=== PATIENT | female | born 1995 | race African-American/Black ===

== ENCOUNTER 2023-12-16 21:16 | Inpatient (IN) | payer BC ==
[2023-12-16 23:14] VITALS: BMI 45.5
[2023-12-16] MEDS: Lactated Ringer's 1,000 ML IV SCH (23:35)
[2023-12-16] MEDS ORDERED: hydrALAZINE 20 MG/ML VIAL SLOW IVP PRN (23:41)
[2023-12-16] MEDS ORDERED: Promethazine HCl 25 MG/ML VIAL IM PRN (23:41)
[2023-12-16] MEDS ORDERED: Acetaminophen 500 MG TAB PO PRN (23:41)
[2023-12-16] MEDS ORDERED: Ondansetron PF 4 MG/2 ML Vial IVP PRN (23:41)
[2023-12-17] MEDS: Ondansetron PF 4 MG/2 ML Vial IVP SCH (00:22)
[2023-12-17 00:23] LABS: #Basophils 0.04 10x3/uL (0.0-0.2); #Eosinphils 0.23 10x3/uL (0.0-0.5); #Neutrophils 9.07 10x3/uL (1.5-8.4); %Basophils 0.3 % (0.0-2.0); %Eosinophils 1.9 % (0.0-6.0); %Lymphocytes 18.7 % (18.0-47.0); %Monocytes 5.6 % (0.0-10.0); %Neutrophils 73.3 % (40.0-75.0); Hematocrit 31.9 % (34.9-44.5); Hemoglobin 10.7 g/dL (12.0-15.5); Mean Corpuscular HGB CONC 33.5 g/dL (32.0-36.0); Mean Corpuscular Hemoglobin 24.8 pg (27.0-33.0); Mean Platelet Volume 9.9 fl (7.4-10.4); Platelet Count 354 10x3/uL (150-450); RBC Distribution Width 15.2 % (11.5-14.5); Red Blood Cell (RBC) Count 4.31 10x6/uL (3.90-5.03); White Blood Cell (WBC) Count 12.4 10x3/uL (3.5-10.5)
[2023-12-17 00:28] LABS: ALT (SGPT) 72 U/L (8-55); AST (SGOT) 46 U/L (5-34); Albumin 2.9 g/dL (3.5-5.0); Alkaline Phosphatase 65 U/L (40-110); Anion Gap 13 mmol/L (10-20); BUN (Urea Nitrogen) Less than 4 mg/dL (7.0-18.7); Bilirubin, Total 1.2 mg/dL (0.2-1.2); Calc. Creatinine Clearance 234 mL/min (70-130); Calcium 8.5 mg/dL (7.8-10.44); Carbon Dioxide 19 mmol/L (22-29); Chloride 109 mmol/L (98-107); Estimated GFR 115; Globulin 3.5 g/dL (2.4-3.5); Glucose 94 mg/dL (70-105); Potassium 3.8 mmol/L (3.5-5.1); Protein, Total 6.4 g/dL (6.0-8.3); Sodium 137 mmol/L (136-145)
[2023-12-17] MEDS: Metoclopramide HCl 10 MG (2 mL) VIAL IVP SCH ×2 (00:43→06:00)
[2023-12-17 04:13] LABS: Bilirubin Neg (Negative); Blood, Urine Negative (Negative); Clarity Clear (Clear); Glucose, Urine (Dipstick) Normal (Negative); Ketone, Urine 150 mg/dL (Negative); Leukocyte Negative (Negative); Nitrite Negative (Negative); Protein, Urine (Dipstick) 15 mg/dl (Neg-Trace); Specific Gravity, Urine 1.015 (1.005-1.030)
[2023-12-17 04:20] LABS: Bacteria/HPF None Seen HPF (None Seen); RBC/HPF 0-3 HPF (0-3); Squamous Epithelial 0-3 HPF (0-3); WBC/HPF None Seen HPF (0-3)
[2023-12-17] MEDS ORDERED: Calcium Carbonate 500 MG ChewTAB PO PRN (06:24)
[2023-12-17] MEDS: Pantoprazole DR 40 MG TAB PO SCH (06:38)
[2023-12-17 08:51] LABS: Amphetamine Not Detected (NotDetected); Barbiturates Screen Not Detected (NotDetected); Benzodiazepine Screen Not Detected (NotDetected); Cocaine Metabolite Screen Not Detected (NotDetected); Methadone Not Detected (NotDetected); Methamphetamine Not Detected (NotDetected); Opiate Screen Not Detected (NotDetected); Oxycodone Screen Not Detected (NotDetected); Phencyclidine (PCP) Not Detected (NotDetected); THC/Cannabinoid Screen Not Detected (NotDetected); Tricyclic Screen Not Detected (NotDetected)
[2023-12-17] MEDS ORDERED: Polyethylene Glycol 3350 17 GM Packet PO PRN (16:49)
[2023-12-17] MEDS: Docusate 100 MG CAP PO PRN (17:55)
[2023-12-17] MEDS: Senokot S 8.6-50 MG TAB PO SCH (20:32)
[2023-12-18] MEDS: Promethazine HCl 25 MG in Sodium Chloride 0.9% 50 ML IVPB PRN (03:22)
[2023-12-18] MEDS ORDERED: Ondansetron ORAL SOLN. 4 MG/5 ML UDCUP PO PRN (07:40)
[2023-12-18] MEDS ORDERED: Metoclopramide HCl 10 MG TAB PO PRN (07:45)
[2023-12-18] MEDS ORDERED: Promethazine HCl 6.25 MG/5 ML Syrup PO PRN (07:47)
[2023-12-18] MEDS: Pantoprazole DR 40 MG TAB PO SCH (10:50)
[2023-12-18] MEDS: Ondansetron PF 4 MG/2 ML Vial IVP SCH (11:49)
[2023-12-18] MEDS: Metoclopramide HCl 10 MG (2 mL) VIAL IVP SCH (14:13)
[2023-12-19 09:28] LABS: #Basophils 0.03 10x3/uL (0.0-0.2); #Eosinphils 0.31 10x3/uL (0.0-0.5); #Monocytes 0.69 10x3/uL (0.0-1.1); #Neutrophils 7.56 10x3/uL (1.5-8.4); %Basophils 0.3 % (0.0-2.0); %Eosinophils 2.9 % (0.0-6.0); %Lymphocytes 19.2 % (18.0-47.0); %Monocytes 6.5 % (0.0-10.0); %Neutrophils 70.7 % (40.0-75.0); Hematocrit 30.2 % (34.9-44.5); Hemoglobin 10.4 g/dL (12.0-15.5); Mean Corpuscular HGB CONC 34.4 g/dL (32.0-36.0); Mean Corpuscular Hemoglobin 24.9 pg (27.0-33.0); Mean Corpuscular Volume 72.4 fl (81.6-98.3); Platelet Count 314 10x3/uL (150-450); RBC Distribution Width 15.4 % (11.5-14.5); Red Blood Cell (RBC) Count 4.17 10x6/uL (3.90-5.03); White Blood Cell (WBC) Count 10.7 10x3/uL (3.5-10.5)
[2023-12-19 09:32] LABS: ALT (SGPT) 84 U/L (8-55); AST (SGOT) 45 U/L (5-34); Albumin 2.7 g/dL (3.5-5.0); Alkaline Phosphatase 69 U/L (40-110); Anion Gap 15 mmol/L (10-20); BUN (Urea Nitrogen) Less than 4 mg/dL (7.0-18.7); Bilirubin, Total 1.1 mg/dL (0.2-1.2); Calc. Creatinine Clearance 255 mL/min (70-130); Calcium 8.6 mg/dL (7.8-10.44); Carbon Dioxide 17 mmol/L (22-29); Chloride 107 mmol/L (98-107); Estimated GFR 121; Globulin 3.6 g/dL (2.4-3.5); Glucose 92 mg/dL (70-105); Protein, Total 6.3 g/dL (6.0-8.3); Sodium 136 mmol/L (136-145)
[2023-12-19] MEDS: Multivitamins, Adult 10 ML, Folic Acid 1 MG, Thiamine HCl 100 MG, Admixture Fee 1 EACH ... IV SCH (12:36)
[2023-12-19] MEDS: Potassium Chloride 10 MEQ in Premix 1 BAG IVPB SCH (12:36)
[2023-12-19 17:19] LABS: Anisocytosis SLIGHT = 6-15 cells (100X) (0-5/hpf); Hypochromia SLIGHT = 6-15 cells (100X) (0-5/hpf); Microcytosis MODERATE=15-30 cells (100X) (0-5/hpf); Poikilocytosis SLIGHT = 6-15 cells (100X) (0-5/hpf)
[2023-12-19 17:21] LABS: Elliptocytes SLIGHT = 2-5 cells (100X) (0-1/hpf); Ovalocytes SLIGHT = 2-5 cells (100X) (0-1/hpf); Platelet Adequacy Comment Appears Adequate
[2023-12-19] MEDS: diphenhydrAMINE 50 MG/ML VIAL IVP SCH (17:46)
[2023-12-20 04:34] LABS: Free T4 (Free Thyroxine) 1.09 ng/dL (0.70-1.48); Thyroid Stimulating Hormone 2.6664 uIU/mL (0.35-4.94)
[2023-12-20 07:18] LABS: #Basophils 0.03 10x3/uL (0.0-0.2); #Eosinphils 0.37 10x3/uL (0.0-0.5); #Monocytes 0.59 10x3/uL (0.0-1.1); #Neutrophils 5.81 10x3/uL (1.5-8.4); %Basophils 0.3 % (0.0-2.0); %Eosinophils 4.1 % (0.0-6.0); %Monocytes 6.5 % (0.0-10.0); %Neutrophils 63.8 % (40.0-75.0); Hematocrit 31.5 % (34.9-44.5); Mean Corpuscular HGB CONC 34.9 g/dL (32.0-36.0); Mean Corpuscular Hemoglobin 25.3 pg (27.0-33.0); Mean Corpuscular Volume 72.6 fl (81.6-98.3); Platelet Count 342 10x3/uL (150-450); RBC Distribution Width 15.6 % (11.5-14.5); Red Blood Cell (RBC) Count 4.34 10x6/uL (3.90-5.03); White Blood Cell (WBC) Count 9.1 10x3/uL (3.5-10.5)
[2023-12-20 07:30] LABS: ALT (SGPT) 104 U/L (8-55); AST (SGOT) 59 U/L (5-34); Albumin 2.7 g/dL (3.5-5.0); Alkaline Phosphatase 76 U/L (40-110); Anion Gap 13 mmol/L (10-20); BUN (Urea Nitrogen) Less than 4 mg/dL (7.0-18.7); Bilirubin, Total 0.7 mg/dL (0.2-1.2); Calc. Creatinine Clearance 255 mL/min (70-130); Calcium 8.5 mg/dL (7.8-10.44); Carbon Dioxide 18 mmol/L (22-29); Chloride 108 mmol/L (98-107); Estimated GFR 121; Globulin 3.6 g/dL (2.4-3.5); Glucose 144 mg/dL (70-105); Potassium 3.2 mmol/L (3.5-5.1); Protein, Total 6.3 g/dL (6.0-8.3); Sodium 136 mmol/L (136-145)
[2023-12-20 07:50] LABS: Microcytosis SLIGHT = 6-15 cells (100X) (0-5/hpf); Platelet Adequacy Comment Appears Adequate
[2023-12-20 08:27] LABS: HBsAg Index 0.31 S/CO (0-0.99); Hep B Surf Ag Non-Reactive S/CO (NonReactive)
[2023-12-20] MEDS ORDERED: Famotidine/PF 20 mg/2ml Vial SLOW IVP SCH (09:00)
[2023-12-20] MEDS: Pantoprazole DR 40 MG TAB PO SCH (09:56)
[2023-12-20] MEDS: Metoclopramide HCl 10 MG (2 mL) VIAL IVP SCH (14:20)
[2023-12-20 15:08] LABS: Hep A IgM AB NONREACTIVE (NonReactive); Hep A IgM S/CO 0.17 S/CO (0-0.79); Hep C IgG Ab NONREACTIVE S/CO (NonReactive); Hep C Index 0.11 S/CO (0-0.79)
[2023-12-20 15:57] LABS: Hepatitis B Core IgM Abs NONREACTIVE S/CO (NonReactive)
[2023-12-21 04:18] LABS: ALT (SGPT) 93 U/L (8-55); AST (SGOT) 36 U/L (5-34); Albumin 2.7 g/dL (3.5-5.0); Alkaline Phosphatase 72 U/L (40-110); Anion Gap 11 mmol/L (10-20); BUN (Urea Nitrogen) Less than 4 mg/dL (7.0-18.7); Bilirubin, Total 0.5 mg/dL (0.2-1.2); Calc. Creatinine Clearance 259 mL/min (70-130); Calcium 8.4 mg/dL (7.8-10.44); Carbon Dioxide 22 mmol/L (22-29); Chloride 106 mmol/L (98-107); Estimated GFR 121; Globulin 3.5 g/dL (2.4-3.5); Glucose 88 mg/dL (70-105); Potassium 3.1 mmol/L (3.5-5.1); Protein, Total 6.2 g/dL (6.0-8.3); Sodium 136 mmol/L (136-145)
[2023-12-21] MEDS ORDERED: Ondansetron PF 4 MG/2 ML Vial IVP PRN (07:31)
[2023-12-21] MEDS: Pantoprazole 40 MG VIAL IVP SCH (08:27)
[2023-12-21] MEDS: diphenhydrAMINE 25 MG CAP PO SCH (08:27)
[2023-12-21] MEDS: Potassium Chloride 20 MEQ in Premix 1 BAG IVPB SCH (08:46)
[2023-12-21] MEDS: Ondansetron ODT 4 MG TAB SL SCH (11:36)
[2023-12-21] MEDS: Metoclopramide HCl 10 MG TAB PO SCH (11:36)
[2023-12-21 20:52] VITALS: TEMP 98.2
[2023-12-22 04:46] LABS: ALT (SGPT) 66 U/L (8-55); AST (SGOT) 26 U/L (5-34); Albumin 2.5 g/dL (3.5-5.0); Alkaline Phosphatase 68 U/L (40-110); Anion Gap 12 mmol/L (10-20); BUN (Urea Nitrogen) 5 mg/dL (7.0-18.7); Bilirubin, Total 0.4 mg/dL (0.2-1.2); Calc. Creatinine Clearance 267 mL/min (70-130); Calcium 8.3 mg/dL (7.8-10.44); Carbon Dioxide 21 mmol/L (22-29); Chloride 106 mmol/L (98-107); Estimated GFR 122; Globulin 3.2 g/dL (2.4-3.5); Glucose 97 mg/dL (70-105); Lipase 116 U/L (8-78); Potassium 3.9 mmol/L (3.5-5.1); Protein, Total 5.7 g/dL (6.0-8.3); Sodium 135 mmol/L (136-145)
[2023-12-22 07:41] VITALS: BP 119/64
== END 2023-12-22 09:30 | disposition home or self-care (01) | DRG 833 ==
LOC: CSHANTE 22:28 → OBSVTOIN 12-18 13:59
PROVIDERS: ADMIT Obstetrics & Gynecology; ATTEND Obstetrics & Gynecology
DX: O21.0 Mild hyperemesis gravidarum (principal); Z3A.10 10 weeks gestation of pregnancy; O99.281 Endocrine, nutritional and metabolic diseases complicating pregnancy, first trimester; E87.6 Hypokalemia; O71.89 Other specified obstetric trauma; R74.01 Elevation of levels of liver transaminase levels
CPT/HCPCS: 36415; 76705; 76815; 76817; 80053; 80074; 80306; 81001; 83690; 83735; 84439; 84443; 85025; 86850; 86900; 86901; 96361; 96365; 96367; 96375; C9113; J1200; J2405; J2550; J2765; J3411; J3480; J7042; J7120; Q0162

== ENCOUNTER 2024-01-08 02:24 | Observation (INO) | payer BC ==
[2024-01-08] MEDS ORDERED: Metoclopramide HCl 10 MG (2 mL) VIAL ONE (03:51)
[2024-01-08] MEDS ORDERED: diphenhydrAMINE 50 MG/ML VIAL ONE (03:51)
[2024-01-08 04:10] LABS: #Basophils 0.03 10x3/uL (0.0-0.2); #Eosinphils 0.17 10x3/uL (0.0-0.5); #Monocytes 0.74 10x3/uL (0.0-1.1); #Neutrophils 10.68 10x3/uL (1.5-8.4); %Basophils 0.2 % (0.0-2.0); %Eosinophils 1.2 % (0.0-6.0); %Monocytes 5.3 % (0.0-10.0); %Neutrophils 76.9 % (40.0-75.0); Hematocrit 32.9 % (34.9-44.5); Hemoglobin 11.6 g/dL (12.0-15.5); Mean Corpuscular HGB CONC 35.3 g/dL (32.0-36.0); Mean Corpuscular Hemoglobin 25.5 pg (27.0-33.0); Mean Corpuscular Volume 72.3 fL (81.6-98.3); Mean Platelet Volume 9.4 fL (7.4-10.4); Platelet Count 373 10x3/uL (150-450); RBC Distribution Width 15.8 % (11.5-14.5); Red Blood Cell (RBC) Count 4.55 10x6/uL (3.90-5.03); White Blood Cell (WBC) Count 13.9 10x3/uL (3.5-10.5)
[2024-01-08 04:14] LABS: ALT (SGPT) 36 U/L (8-55); AST (SGOT) 23 U/L (5-34); Alkaline Phosphatase 58 U/L (40-110); Anion Gap 14 mmol/L (10-20); BUN (Urea Nitrogen) 4 mg/dL (7.0-18.7); Bilirubin, Total 0.5 mg/dL (0.2-1.2); Calc. Creatinine Clearance 0 mL/min (70-130); Carbon Dioxide 19 mmol/L (22-29); Chloride 107 mmol/L (98-107); Estimated GFR 112; Globulin 4.1 g/dL (2.4-3.5); Glucose 104 mg/dL (70-105); Potassium 3.9 mmol/L (3.5-5.1); Protein, Total 7.1 g/dL (6.0-8.3); Sodium 136 mmol/L (136-145)
[2024-01-08 05:23] LABS: Microcytosis SLIGHT = 6-15 cells (100X) (0-5/hpf)
[2024-01-08 05:24] LABS: Platelet Adequacy Comment Appears Adequate
[2024-01-08] MEDS ORDERED: Acetaminophen 500 MG TAB PO PRN (05:59)
[2024-01-08] MEDS ORDERED: hydrALAZINE 20 MG/ML VIAL SLOW IVP PRN (05:59)
[2024-01-08] MEDS ORDERED: Promethazine HCl 25 MG/ML VIAL IM PRN (05:59)
[2024-01-08] MEDS ORDERED: Oxytocin 30 units/NS 500 ML 500 ML IV SCH (06:00)
[2024-01-08] MEDS: diphenhydrAMINE 50 MG/ML VIAL IVP SCH ×3 (09:40→14:19)
[2024-01-08] MEDS: Lactated Ringer's 1,000 ML IV SCH ×2 (10:02→13:26)
[2024-01-08] MEDS: Ondansetron PF 4 MG/2 ML Vial IVP SCH (10:34)
[2024-01-08] MEDS: Pantoprazole 40 MG VIAL IVP SCH (10:34)
[2024-01-08] MEDS: Multivitamins, Adult 10 ML, Folic Acid 1 MG, Thiamine HCl 100 MG, Admixture Fee 1 EACH ... IV SCH (11:04)
[2024-01-08] MEDS ORDERED: Metoclopramide HCl 10 MG (2 mL) VIAL IVP SCH (14:00)
[2024-01-08] MEDS: Metoclopramide HCl 10 MG (2 mL) VIAL IVP SCH (14:18)
[2024-01-08] MEDS ORDERED: Ondansetron PF 4 MG/2 ML Vial IVP SCH ×2 (14:30→16:30)
[2024-01-08 16:24] LABS: Amphetamine Not Detected (NotDetected); Barbiturates Screen Not Detected (NotDetected); Benzodiazepine Screen Not Detected (NotDetected); Cocaine Metabolite Screen Not Detected (NotDetected); Methadone Not Detected (NotDetected); Methamphetamine Not Detected (NotDetected); Opiate Screen Not Detected (NotDetected); Oxycodone Screen Not Detected (NotDetected); Phencyclidine (PCP) Not Detected (NotDetected); THC/Cannabinoid Screen Not Detected (NotDetected); Tricyclic Screen Not Detected (NotDetected)
[2024-01-08] MEDS: Ondansetron ODT 4 MG TAB SL SCH (18:23)
[2024-01-08] MEDS: pyridOXINE 50 MG (B6) TAB PO SCH (20:22)
[2024-01-08] MEDS: diphenhydrAMINE 25 MG CAP PO SCH (20:23)
[2024-01-08] MEDS: Doxylamine 25 MG TAB PO SCH (20:23)
[2024-01-09 07:25] LABS: #Basophils 0.03 10x3/uL (0.0-0.2); #Monocytes 0.53 10x3/uL (0.0-1.1); #Neutrophils 7.68 10x3/uL (1.5-8.4); %Basophils 0.3 % (0.0-2.0); %Eosinophils 1.9 % (0.0-6.0); %Lymphocytes 20.8 % (18.0-47.0); %Neutrophils 71.7 % (40.0-75.0); Hemoglobin 10.2 g/dL (12.0-15.5); Mean Corpuscular Hemoglobin 24.9 pg (27.0-33.0); Mean Corpuscular Volume 73.2 fL (81.6-98.3); Mean Platelet Volume 9.5 fL (7.4-10.4); Platelet Count 339 10x3/uL (150-450); RBC Distribution Width 15.6 % (11.5-14.5); White Blood Cell (WBC) Count 10.7 10x3/uL (3.5-10.5)
[2024-01-09 08:38] LABS: Microcytosis MODERATE=15-30 cells (100X) (0-5/hpf); Platelet Adequacy Comment Appears Adequate; Polychromasia SLIGHT = 2-3 cells (100X) (0-2/hpf)
[2024-01-09 09:37] LABS: Albumin 2.6 g/dL (3.5-5.0); Anion Gap 11 mmol/L (10-20); BUN (Urea Nitrogen) Less than 4 mg/dL (7.0-18.7); Bilirubin, Total 0.6 mg/dL (0.2-1.2); Calc. Creatinine Clearance 0 mL/min (70-130); Calcium 8.6 mg/dL (7.6-10.4); Carbon Dioxide 21 mmol/L (22-29); Chloride 107 mmol/L (98-107); Estimated GFR 120; Globulin 3.4 g/dL (2.4-3.5); Glucose 89 mg/dL (70-105); Potassium 3.3 mmol/L (3.5-5.1); Sodium 136 mmol/L (136-145)
[2024-01-09 09:38] LABS: ALT (SGPT) 32 U/L (8-55); AST (SGOT) 17 U/L (5-34); Alkaline Phosphatase 58 U/L (40-110)
[2024-01-09 09:44] VITALS: BP 116/70; TEMP 98.2
== END 2024-01-09 13:10 | disposition home or self-care (01) ==
LOC: CSHERS 02:24 → CSHPP 09:01
PROVIDERS: ADMIT Obstetrics & Gynecology; ATTEND Obstetrics & Gynecology
DX: O21.9 Vomiting of pregnancy, unspecified (principal); Z3A.13 13 weeks gestation of pregnancy; Z88.0 Allergy status to penicillin
CPT/HCPCS: 76817; 80053; 80306; 85025; 99284; C9113; J1200; J2405; J2765; J3411; J7042; J7120; Q0162

== ENCOUNTER 2024-04-25 22:25 | Day surgery (SDC) | payer BC ==
[2024-04-26] MEDS ORDERED: Acetaminophen 500 MG TAB PO SCH (00:15)
== END 2024-04-26 03:25 | disposition home or self-care (01) ==
LOC: CSHERS 22:25 → CSHLD/OP 23:02
PROVIDERS: ATTEND Student in an Organized Health Care Education/Training Program
DX: Z04.3 Encounter for examination and observation following other accident (principal); O9A.213 Injury, poisoning and certain other consequences of external causes complicating pregnancy, third trimester; Z88.0 Allergy status to penicillin; Z88.8 Allergy status to other drugs, medicaments and biological substances; Z79.899 Other long term (current) drug therapy; Z3A.29 29 weeks gestation of pregnancy; W01.0XXA Fall on same level from slipping, tripping and stumbling without subsequent striking against object, initial encounter
CPT/HCPCS: 76815; 99282; 99283

== ENCOUNTER 2024-04-27 16:40 | Emergency (ER) | payer BC | END 2024-04-27 20:19 | disposition home or self-care (01) | LOC: CSHERS 16:40 | DX: S09.90XA Unspecified injury of head, initial encounter (principal); Y04.0XXA Assault by unarmed brawl or fight, initial encounter | CPT/HCPCS: 70450 ==

== ENCOUNTER 2024-06-19 18:00 | Inpatient (IN) | payer BC, OTHER ==
[2024-06-19 19:21] VITALS: BMI 48.6
[2024-06-19] MEDS ORDERED: Diphenoxylate HCl/Atropine Tablet PO PRN (19:37)
[2024-06-19] MEDS ORDERED: HYDROcodone/Acetaminophen 5/325 mg Tablet PO PRN (19:37)
[2024-06-19] MEDS ORDERED: fentaNYL 50 mcg/mL 1 mL Vial SLOW IVP PRN (19:37)
[2024-06-19] MEDS ORDERED: Ondansetron PF 4 MG/2 ML Vial IVP PRN (19:37)
[2024-06-19] MEDS ORDERED: Ibuprofen 800 MG TAB PO PRN (19:37)
[2024-06-19] MEDS ORDERED: hydrALAZINE 20 MG/ML VIAL SLOW IVP PRN (19:37)
[2024-06-19] MEDS ORDERED: Carboprost 250 MCG/ML AMP IM PRN (19:37)
[2024-06-19] MEDS ORDERED: Lidocaine 1% (PF) 30 ML VIAL SC PRN (19:37)
[2024-06-19] MEDS ORDERED: Misoprostol 200 MCG TAB PR PRN (19:37)
[2024-06-19] MEDS ORDERED: Acetaminophen 500 MG TAB PO PRN (19:37)
[2024-06-19] MEDS ORDERED: Promethazine HCl 25 MG/ML VIAL IM PRN (19:37)
[2024-06-19] MEDS ORDERED: Methylergonovine 0.2 MG/ML VIAL IM PRN (19:37)
[2024-06-19] MEDS ORDERED: Zolpidem Tartrate 5 MG TAB PO PRN (19:37)
[2024-06-19] MEDS ORDERED: Lactated Ringer's 1,000 ML IV SCH (19:45)
[2024-06-19] MEDS ORDERED: Oxytocin 30 units/NS 500 ML 500 ML IV SCH ×2 (19:45)
[2024-06-19] MEDS: CEFAZOLIN 2 GM in Sodium Chloride 0.9% 100 ML IVPB SCH (20:36)
[2024-06-19] MEDS: Misoprostol 100 MCG TAB VAG SCH (20:37)
[2024-06-19 20:48] LABS: Hemoglobin 11.2 g/dL (12.0-15.5); Mean Corpuscular HGB CONC 33.9 g/dL (32.0-36.0); Mean Corpuscular Hemoglobin 25.9 pg (27.0-33.0); Mean Corpuscular Volume 76.4 fL (81.6-98.3); Mean Platelet Volume 11.1 fL (7.4-10.4); Platelet Count 294 10x3/uL (150-450); RBC Distribution Width 15.4 % (11.5-14.5); Red Blood Cell (RBC) Count 4.32 10x6/uL (3.90-5.03); White Blood Cell (WBC) Count 8.4 10x3/uL (3.5-10.5)
[2024-06-19 21:06] LABS: ALT (SGPT) 11 U/L (8-55); AST (SGOT) 13 U/L (5-34); Albumin 2.4 g/dL (3.5-5.0); Alkaline Phosphatase 116 U/L (40-110); Anion Gap 12 mmol/L (10-20); BUN (Urea Nitrogen) 7 mg/dL (7.0-18.7); Bilirubin, Total 0.3 mg/dL (0.2-1.2); Calc. Creatinine Clearance 224 mL/min (70-130); Calcium 8.8 mg/dL (7.8-10.44); Carbon Dioxide 20 mmol/L (22-29); Chloride 108 mmol/L (98-107); Estimated GFR 103; Globulin 3.2 g/dL (2.4-3.5); Glucose 129 mg/dL (70-105); Potassium 4.1 mmol/L (3.5-5.1); Protein, Total 5.6 g/dL (6.0-8.3); Sodium 136 mmol/L (136-145)
[2024-06-19 21:24] LABS: HBsAg Index 0.21 S/CO (0-0.99); Hep B Surf Ag - L&D Non-Reactive S/CO (NonReactive)
[2024-06-19 21:25] LABS: Syphilis Antibody Nonreactive (Nonreactive)
[2024-06-20] MEDS ORDERED: Ketorolac Tromethamine 30 MG (1 mL) VIAL ONE (18:31)
[2024-06-21] MEDS ORDERED: Benzocaine-Menthol 82.5 ML CAN ONE (00:18)
[2024-06-21] MEDS ORDERED: Ketorolac Tromethamine 30 MG (1 mL) VIAL ONE (05:35)
[2024-06-21] MEDS ORDERED: CEFAZOLIN 2 GM VIAL ONE (05:45)
[2024-06-21] MEDS ORDERED: diphenhydrAMINE 25 MG CAP PO PRN (07:57)
[2024-06-21] MEDS ORDERED: Promethazine HCl 25 MG/ML VIAL IM PRN (07:57)
[2024-06-21] MEDS ORDERED: HYDROcodone/Acetaminophen 5/325 mg Tablet PO PRN (07:57)
[2024-06-21] MEDS ORDERED: Lanolin Ointment 7 GM TUBE TOP PRN (07:57)
[2024-06-21] MEDS ORDERED: Zolpidem Tartrate 5 MG TAB PO PRN (07:57)
[2024-06-21] MEDS ORDERED: Acetaminophen 325 MG TAB PO PRN (07:57)
[2024-06-21] MEDS ORDERED: Simethicone Chewable 80 MG TAB PO PRN (07:57)
[2024-06-21] MEDS ORDERED: Bisacodyl 10 MG SUPP PR PRN (07:57)
[2024-06-21] MEDS ORDERED: Lactated Ringer's 1,000 ML IV SCH (07:57)
[2024-06-21] MEDS ORDERED: Ondansetron PF 4 MG/2 ML Vial SLOW IVP PRN (07:57)
[2024-06-21] MEDS ORDERED: Boostrix 0.5 ML (Tdap) VIAL (>/=7 yrs of age) IM ONE (07:57)
[2024-06-21] MEDS ORDERED: hydrALAZINE 20 MG/ML VIAL SLOW IVP SCH (07:57)
[2024-06-21] MEDS ORDERED: HYDROcodone/Acetaminophen 5/325 mg Tablet ONE ×3 (09:11→20:31)
[2024-06-21] MEDS ORDERED: Docusate 100 MG CAP ONE (09:12)
[2024-06-21] MEDS ORDERED: Ibuprofen 800 MG TAB ONE ×2 (14:06→20:31)
[2024-06-21 18:42] LABS: Hematocrit 31.2 % (34.9-44.5); Hemoglobin 10.6 g/dL (12.0-15.5); Mean Corpuscular Hemoglobin 26.5 pg (27.0-33.0); Mean Platelet Volume 11.4 fL (7.4-10.4); Platelet Count 277 10x3/uL (150-450); RBC Distribution Width 15.1 % (11.5-14.5); White Blood Cell (WBC) Count 20.7 10x3/uL (3.5-10.5)
[2024-06-22] MEDS: Ibuprofen 800 MG TAB PO SCH (22:02)
[2024-06-22] MEDS: Docusate 100 MG CAP PO SCH (22:02)
[2024-06-23] MEDS: HYDROcodone/Acetaminophen 5/325 mg Tablet PO PRN (09:12)
[2024-06-23] MEDS: Prenatal Vitamin 1 TAB PO SCH (13:03)
[2024-06-23] MEDS: Ferrous Sulfate 325 MG TAB PO SCH (13:04)
[2024-06-23 16:52] VITALS: BP 135/68; TEMP 98.3
[2024-06-25 15:59] LABS: Analyzer IN Cardio CS NICU; RapidComm Collect By OR NUDSE; pH (Cord, venous) 7.175 (7.250-7.350)
[2024-06-25 16:00] LABS: Analyzer IN Cardio CS NICU; RapidComm Collect By OR NURSE
== END 2024-06-23 16:15 | disposition home or self-care (01) | DRG 788 ==
LOC: EEVIPCON 18:00 → CSHLD 18:23 → CSHPED 06-21 16:41
PROVIDERS: ADMIT Student in an Organized Health Care Education/Training Program; ATTEND Student in an Organized Health Care Education/Training Program
PROC: 10D00Z1 Extraction of Products of Conception, Low, Open Approach (ICD-10-PCS; principal; 2024-06-20)
PROC: 4A033R1 Measurement of Arterial Saturation, Peripheral, Percutaneous Approach (ICD-10-PCS; 2024-06-20)
DX: O76 Abnormality in fetal heart rate and rhythm complicating labor and delivery (principal); Z3A.37 37 weeks gestation of pregnancy; Z37.0 Single live birth; O24.429 Gestational diabetes mellitus in childbirth, unspecified control; O13.4 Gestational [pregnancy-induced] hypertension without significant proteinuria, complicating childbirth; Z88.0 Allergy status to penicillin; Z88.8 Allergy status to other drugs, medicaments and biological substances; O99.824 Streptococcus B carrier state complicating childbirth
CPT/HCPCS: 36416; 51702; 80053; 82805; 85027; 86780; 86850; 86870; 86900; 86901; 87340